=== PATIENT | female | born 1995 | race Caucasian/White ===

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

== ENCOUNTER → 2017-01-04 | Outpatient (CLI) | payer OTHER | END | disposition home or self-care (01) | LOC: LAB.O 15:27 | PROVIDERS: ATTEND Internal Medicine | DX: D69.3 Immune thrombocytopenic purpura (principal); D70.8 Other neutropenia ==

== ENCOUNTER → 2017-06-02 | Outpatient (CLI) | payer BC | LOC: LAB.O 14:18 | PROVIDERS: ATTEND Internal Medicine | DX: D69.3 Immune thrombocytopenic purpura (principal); D50.1 Sideropenic dysphagia ==

== ENCOUNTER → 2019-08-13 | Outpatient (CLI) | payer OTHER | LOC: LAB.O 17:22 | PROVIDERS: ATTEND Family Medicine | DX: D64.9 Anemia, unspecified (principal); E55.9 Vitamin D deficiency, unspecified; E03.9 Hypothyroidism, unspecified ==